=== PATIENT | female | born 1995 | race Caucasian/White ===

== ENCOUNTER 2017-04-01 17:10 | Emergency (ER) | payer OTHER ==
[2017-04-01] MEDS ORDERED: IBUPROFEN 600 MG TABLET PO STA (17:14)
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
[2017-04-01 17:34] LABS: BILIRUBIN,URINE NEGATIVE (NEGATIVE)
[2017-04-01] MEDS ORDERED: IBUPROFEN 600 MG TABLET PO ONE (17:34)
[2017-04-01 17:36] LABS: UA CHARGE (STRIP ONLY) YES; UR CULTURE IF IND NOT INDICATED
[2017-04-01 17:37] LABS: HCG UR QUAL NEGATIVE
--- NOTE | 2017-04-01 18:52 | XRAY Preliminary Report ---
Exam: XR Ribs w/PA Chest LT IMPRESSION: Normal chest and rib radiography. [facility] SITE ID: [id number]
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
[2017-04-01 19:11] VITALS: BP 115/74
== END 2017-04-01 19:00 | disposition home or self-care (01) ==
LOC: ED 17:10
DX: S20.212A Contusion of left front wall of thorax, initial encounter (principal); V43.52XA Car driver injured in collision with other type car in traffic accident, initial encounter; Y92.488 Other paved roadways as the place of occurrence of the external cause; R03.0 Elevated blood-pressure reading, without diagnosis of hypertension
CPT/HCPCS: 71101; 81003; 81025; 99283; A9270; 81001; 87086